=== PATIENT | female | born 1965 | race African-American/Black ===

== ENCOUNTER 2017-07-26 08:20 | Emergency (ER) | payer MEDICARE, OTHER ==
[~2017-07-26] VITALS: Ht 167.6 cm; Wt 68.0 kg
[~2017-07-26 08:20] MED LIST: CHLO.12%30 SSP; CLIN75S PO; HYDR-3533 PO; IBUP600T26 PO
[2017-07-26 08:23] VITALS: BP 170/78; PULSE 77; RESP 20; TEMP 98; O2SAT 100
[2017-07-26 09:32] VITALS: BP 150/86; PULSE 82; RESP 17; TEMP 98; O2SAT 100
[2017-07-26] MEDS ORDERED: ORPHENADRINE INJ 60 MG/2 ML AMP IM ONE (09:45)
[2017-07-26] MEDS ORDERED: MORPHINE SULFATE 2 MG/ML INJ IM ONE (09:45)
--- NOTE | 2017-07-26 10:16 | RADRPT ---
EXAM DATE/TIME: 07/26/2017 09:52 [place] COMPARISON: No previous studies available for comparison. INDICATIONS : Lower back pain that radiates down right leg. RADIATION DOSE: 20.83 CTDIvol (mGy) MEDICAL HISTORY : None SURGICAL HISTORY : Hysterectomy. ENCOUNTER: Initial ACUITY: 1 day PAIN SCALE: 8/10 LOCATION: lower back TECHNIQUE: Volumetric scanning of the lumbar spine was performed. Multiplanar reconstructions in the sagittal, coronal and oblique axial planes were performed. Using automated exposure control and adjustment of the mA and/or kV according to patient size, radiation dose was kept as low as reasonably achievable t o obtain optimal diagnostic quality images. DICOM format image data is available electronically for review and comparison. FINDINGS: VERTEBRAE: Normal vertebral body height. ALIGNMENT: No evidence of subluxation. T12-L1: The thecal sac has a normal diameter. No evidence of disc bulge or protrusion. The neural foramina are patent bilaterally. L1-L2: The thecal sac has a normal diameter. No evidence of disc bulge or protrusion. The neural foramina are patent bilaterally. L2-L3: The thecal sac has a normal diameter. No evidence of disc bulge or protrusion. The neural foramina are patent bilaterally. L3-L4: The thecal sac has a normal diameter. No evidence of disc bulge or protrusion. The neural foramina are patent bilaterally. L4-L5: Mild generalized disc bulging with minimal facet degenerative changes. L5-S1: Mild generalized disc bulging. Moderate facet disease. Moderate lateral recess stenosis. SI joints are normal. CONCLUSION: Mild degenerative disc disease worse at L5-S1. Zander Velázquez MD FACR on July 26, 2017 at 10:12 Board Certified Radiologist. This report was verified electronically.
--- NOTE | 2017-07-26 10:57 | PD ---
HPI Chief Complaint: Back/ Neck Pain or Injury Time Seen by Provider: 09:29 Travel History International Travel<30 days: No Contact w/Intl Traveler<30days: No Traveled to known affect area: No History of Present Illness HPI Patient is a 52-year-old female presents emergency department for evaluation of low back pain radiating down her right leg. Patient states it started last night and is been fairly intense. Denies any injury. States this never happened to her before. Denies any saddle anesthesia difficulty urinating or difficulty defecating. Denies any fevers denies any history of IV drug abuse. Patient states the pain is severe, low back, radiating down her right leg, associated signs symptoms as above PFSH Past Medical History Depression: Yes Diminished Hearing: No Tetanus Vaccination: Unknown Influenza Vaccination: Yes ?: Not Menopausal: Yes : 2 Para: 2 Miscarriage: 0 : 0 Past Surgical History Gynecologic Surgery: Yes (HYSTERECTOMY) Hysterectomy: Yes (AGE 27) Social History Alcohol Use: No Tobacco Use: No Substance Use: No Allergies-Medications (Allergen,Severity, Reaction): Coded Allergies: No Known Allergies (Verified Adverse Reaction, Unknown, DOES NOT SWOLLOW PILLS, 07/26/17) Reported Meds & Prescriptions Reported Meds & Active Scripts Active Flexeril (Cyclobenzaprine HCl) 10 Mg Tab 10 Mg PO TID Review of Systems Except as stated in HPI: all other systems reviewed are Neg Physical Exam Narrative GENERAL: Well-developed well-nourished no obvious distress SKIN: Focused skin assessment warm/dry. HEAD: Atraumatic. Normocephalic. EYES: Pupils equal and round. No scleral icterus. No injection or drainage. ENT: No nasal bleeding or discharge. Mucous membranes pink and moist. NECK: Trachea midline. No JVD. CARDIOVASCULAR: Regular rate and rhythm. No murmur appreciated. RESPIRATORY: No accessory muscle use. Clear to auscultation. Breath sounds equal bilaterally. GASTROINTESTINAL: Abdomen soft, non-tender, nondistended. Hepatic and splenic margins not palpable. MUSCULOSKELETAL: No obvious deformities. No clubbing. No cyanosis. No edema. Fairly minimal to trivial midline low spine tenderness, she is more tender on the right paraspinal region. No palpable spasm however. She is 2+ bilateral equal pulses in all 4 extremities, there is no midline thoracic or cervical spine tenderness, pelvis stable, hips are atraumatic NEUROLOGICAL: Awake and alert. No obvious cranial nerve deficits. Motor grossly within normal limits. Normal speech. PSYCHIATRIC: Appropriate mood and affect; insight and judgment normal. Data Data Last Documented VS Vital Signs Date Time Temp Pulse Resp B/P (MAP) Pulse Ox O2 Delivery O2 Flow Rate FiO2 07/26/17 11:23 76 17 139/78 (98) 100 07/26/17 09:32 98.0 Room Air Orders Orders Ct Lumb Spine W/O Contrast (07/26/17 ) Morphine Inj (Morphine Inj) (07/26/17 09:45) Orphenadrine Inj (Norflex Inj) (07/26/17 09:45) Ed Discharge Order (07/26/17 11:00) MDM Medical Decision Making Medical Screen Exam Complete: Yes Emergency Medical Condition: Yes Differential Diagnosis Lumbar fracture, lumbar strain, lumbar sprain, radiculopathy, degenerative disc disease per Narrative Course Patient room to the emergency department, she appears somewhat uncomfortable, states she has a very difficult time taking pills so a dose of morphine and also Flexeril were ordered for her I am, the patient declined the morphine, she took the Flexeril and is feeling somewhat better, she was able to ambulate to the bathroom Last [address] 07/26/17 0000 Signed Impressions: Service Date/Time: Wednesday, July 26, 2017 09:52 - CONCLUSION: Mild degenerative disc disease worse at L5-S1. Zander Velázquez MD FACR Diagnosis Primary Impression: DDD (degenerative disc disease), lumbar Med/Other Pt SpecificInfo: Prescription(s) given Scripts Cyclobenzaprine (Flexeril) 10 Mg Tab 10 MG PO TID for Muscle Spasm, #30 TAB 0 Refills Prov: Nathaniel Rich MD 07/26/17 Disposition: 01 DISCHARGE HOME Condition: Stable Nathaniel Rich MD Jul 26, 2017 10:57
[2017-07-26] MEDS ORDERED: CYCL10TA PO (10:59)
[2017-07-26 11:23] VITALS: BP 139/78
== END 2017-07-26 11:24 | disposition home or self-care (01) ==
LOC: NEPD 08:20
DX: M51.37 Other intervertebral disc degeneration, lumbosacral region (principal); F32.9 Major depressive disorder, single episode, unspecified
CPT/HCPCS: 72131; 96372; 99283; J2360

== ENCOUNTER → 2017-10-16 | Outpatient (CLI) | payer MEDICARE, OTHER ==
[~2017-10-16] MED LIST changes: -CHLO.12%30 SSP; -CLIN75S PO; +CYCL10TA PO; -HYDR-3533 PO; -IBUP600T26 PO
[2017-10-16 12:27] LABS: AUTOMATED NEUTROPHIL # 3.4 TH/MM3 (1.8-7.7); BASOPHIL % 0.4 % (0.0-2.0); EOSINOPHIL # 0.1 TH/MM3 (0-0.4); EOSINOPHIL % 1.7 % (0.0-4.0); HEMATOCRIT 40.3 % (35.0-46.0); HEMOGLOBIN 13.1 GM/DL (11.6-15.3); LYMPH % 44.1 % (9.0-44.0); LYMPHOCYTE # 3.3 TH/MM3 (1.0-4.8); MEAN CELL VOLUME 77.8 FL (80.0-100.0); MEAN CORPUSCULAR HEMOGLOBIN 25.3 PG (27.0-34.0); MEAN CORPUSCULAR HGB CONC 32.5 % (32.0-36.0); MEAN PLATELET VOLUME 8.9 FL (7.0-11.0); MONO % 7.5 % (0.0-8.0); MONOCYTE # 0.6 TH/MM3 (0-0.9); NEUT % 46.3 % (16.0-70.0); PLATELET COUNT 205 TH/MM3 (150-450); RED BLOOD COUNT 5.18 MIL/MM3 (4.00-5.30); RED CELL DISTRIBUTION WIDTH 14.2 % (11.6-17.2); WHITE BLOOD COUNT 7.4 TH/MM3 (4.0-11.0)
[2017-10-16 12:32] LABS: BACTERIA, URINE MANY /hpf; BILIRUBIN, URINE NEG (NEG); BLOOD, URINE LARGE (NEG); GLUCOSE,URINE NEG (NEG); KETONE, URINE NEG (NEG); MUCUS URINE MANY /lpf (OCC); NITRITE,URINE POS (NEG); PH, URINE 5.5 (5.0-8.5); SQUAMOUS EPITHELIAL CELL URINE 3 /hpf (0-5); URINE COLOR YELLOW (YELLW/STRAW); URINE LEUKOCYTE ESTERASE LARGE (NEG)
[2017-10-16 12:49] LABS: ALBUMIN 3.9 GM/DL (3.4-5.0); AST (GOT) 13 U/L (15-37); BICARBONATE 27.9 MEQ/L (21.0-32.0); BLOOD UREA NITROGEN 12 MG/DL (7-18); CALCIUM 9.4 MG/DL (8.5-10.1); CHLORIDE 106 MEQ/L (98-107); CREATININE 0.79 MG/DL (0.50-1.00); GLOMERULAR FILTRATION RATE 92 ML/MIN (>89); GLUCOSE,FASTING 82 MG/DL (74-99); SODIUM (NA) 142 MEQ/L (136-145)
[2017-10-16 12:50] LABS: ALT (GPT) 20 U/L (10-53)
[2017-10-16 12:52] LABS: ALKALINE PHOSPHATASE 86 U/L (45-117); TOTAL BILIRUBIN ADULT 0.8 MG/DL (0.2-1.0); TOTAL PROTEIN 8.6 GM/DL (6.4-8.2)
== END ==
LOC: CLAB 11:46
PROVIDERS: ATTEND Family Medicine
DX: M54.5 Low back pain (principal)
CPT/HCPCS: 36415; 80053; 81001; 85025